=== PATIENT | male | born 2000 | race Two or more races ===

== ENCOUNTER 2019-01-08 16:09 | Emergency (ER) | payer MEDICAID ==
[~2019-01-08] VITALS: Ht 170.2 cm; Wt 86.2 kg
--- NOTE | 2019-01-08 16:24 | NUR ---
ED Nurse Note: Pt walked in due to left knee pain x 1 day. Denies trauma/injury. AAO x4 and ambulatory.
[2019-01-08] MEDS ORDERED: IBUPROFEN600 MG ORAL (17:05)
[2019-01-08 17:10] VITALS: BP 120/71
--- NOTE | 2019-01-08 17:11 | NUR ---
ER DISCHARGE NOTE: Patient is cleared to be discharged per ERMD, pt is aox4, on room air, with stable vital signs. pt was given dc and prescription instructions, pt was able to verbalize understanding, pt id band removed without complications. pt is able to ambulate with steady gait. pt took all belongings.
--- NOTE | 2019-01-08 20:48 | Emergency Room Report ---
History of Present Illness General Chief Complaint: Lower Extremity Injury Source: Patient Present Illness HPI The patient is a 18-year-old male presenting for left knee pain. He states that his left knee yesterday onto a hard surface. He denies any other injury. Pain is continued and is a 10 out of 10 dull ache. Does not radiate. Worse with movement. He denies previous knee injury. He denies any other symptoms including numbness, tingling, rash Allergies: Coded Allergies: No Known Allergies (Unverified , 01/08/19) Patient History Past Medical History: see triage record Pertinent Family History: none Reviewed Nursing Documentation: PMH: Agreed; PSxH: Agreed Nursing Documentation-PMH Past Medical History: No Stated History Review of Systems All Other Systems: negative except mentioned in HPI Physical Exam Vital Signs Date Time Temp Pulse Resp B/P (MAP) Pulse Ox O2 Delivery O2 Flow Rate FiO2 01/08/19 16:14 97.5 70 18 112/65 (81) 98 Room Air Sp02 EP Interpretation: reviewed, normal General Appearance: no apparent distress, alert, GCS 15, non-toxic Head: normocephalic, atraumatic Musculoskeletal: back normal, gait/station normal, normal range of motion, no calf tenderness, tender - L anterior knee Neurologic: alert, oriented x3, responsive, motor strength/tone normal, sensory intact, speech normal Psychiatric: judgement/insight normal, memory normal, mood/affect normal, no suicidal/homicidal ideation Skin: no rash Medical Decision Making PA Attestation Dr. Maria is my supervising physician. Patient management was discussed with my supervising physician Diagnostic Impression: Primary Impression: Contusion of knee, left Qualified Codes: S80.02XA - Contusion of left knee, initial encounter ER Course The patient is a 18-year-old male presenting for left knee pain. Ddx considered include but not limited to sprain/strain, fracture, contusion PE: Vitals stable. NAD Left knee: Full active range of motion is intact. No laxity. No edema or erythema. There is tenderness to palpation over patella. No deformity Normal gait X-ray of the left knee is unremarkable Rice instructions are given and the patient is discharged with Motrin. He is told to follow-up with primary doctor. ER precautions given Other X-Ray Diagnostic Results Other X-Ray Diagnostic Results : # of Views/Limited Vs Complete: 3 View, Complete Indication: Pain EP Interpretation: Yes ARNIE Xray: Interpretation reviewed, by supervising MD, and agrees with findings. Interpretation: no dislocation, no soft tissue swelling, no fractures Impression: No acute disease Electronically Signed by: Jeff Bertrand PA-C Last Vital Signs Date Time Temp Pulse Resp B/P (MAP) Pulse Ox O2 Delivery O2 Flow Rate FiO2 01/08/19 17:10 98.0 78 16 120/71 99 Room Air Status: improved Disposition: HOME, SELF-CARE Condition: Improved Scripts Ibuprofen* (MOTRIN*) 600 Mg Tablet 600 MG ORAL Q8H PRN for For Pain, #30 TAB 0 Refills Prov: JEFF BERTRAND 01/08/19 Referrals: NOT CHOSEN IPA/,REFERRING (PCP) Departure Forms: Return to School Return to School On: Jan 10, 2019 School Release Restrictions: None Patient Instructions: Knee Pain Additional Instructions: I discussed my findings with the patient. All questions and concerns have been answered. Treatment and medication compliance have been addressed. I advised the patient that they need to follow up with PMD in 3-5 days. Return to ED if pain remains or worsens, numbness or tingling occurs, new rash is noticed, fever is noticed, or if needed for any reason. Patient verbalized understanding of discharge instructions. JEFF BERTRAND Jan 08, 2019 20:48
--- NOTE | 2019-01-09 12:46 | Diagnostic Imaging Report ---
Indication: Left knee pain, status post fall Technique: 3 views of the left knee Comparison: None Findings: No suprapatellar effusion. No acute fractures. No dislocations. The joint spaces are preserved Impression: Negative
== END 2019-01-08 17:13 | disposition home or self-care (01) ==
LOC: EMR 16:47
DX: S80.02XA Contusion of left knee, initial encounter (principal); W22.09XA Striking against other stationary object, initial encounter; Y92.9 Unspecified place or not applicable
CPT/HCPCS: 73562; Z7502; 99283

== ENCOUNTER 2019-06-28 07:59 | Emergency (ER) | payer MEDICAID, OTHER ==
[~2019-06-28] VITALS: Ht 170.2 cm; Wt 72.6 kg
[~2019-06-28 07:59] MED LIST: IBUPROFEN600 MG ORAL
--- NOTE | 2019-06-28 08:12 | NUR ---
ED Nurse Note: Pt ambulated to ed c/o left middle finger laceration s/p cleaning chicken at work. pt finger appears red and swollen, no active bleeding at this time. NAD noted
[2019-06-28 08:13] VITALS: BP 108/65
[2019-06-28] MEDS ORDERED: Tetanus/Diptheria/Pertussis IM ONE (08:15)
--- NOTE | 2019-06-28 08:21 | Emergency Room Report ---
History of Present Illness General Chief Complaint: Laceration Source: Patient Present Illness HPI Disclaimer: Please note that this report is being documented using DRAGON technology. This can lead to erroneous entry secondary to incorrect interpretation by the dictating instrument. HPI: 18-year-old male presents for evaluation of laceration. Patient was cooking yesterday and accidentally sliced the dorsum of the middle phalanx of the left middle finger. Cleaned it yesterday. Did not seek medical attention initially after the injury. Came today to fill out paperwork as this occurred at work. Cannot recall last tetanus shot. No rebleeding since initial injury. Denies swelling or drainage. Allergies: Coded Allergies: No Known Allergies (Unverified , 01/08/19) Nursing Documentation-[facility] Past Medical History: No Stated History Review of Systems All Other Systems: negative except mentioned in HPI Physical Exam Vital Signs Date Time Temp Pulse Resp B/P (MAP) Pulse Ox O2 Delivery O2 Flow Rate FiO2 06/28/19 08:05 97.9 65 14 108/65 (79) 96 Room Air General: Awake and alert, no acute distress HEENT: NC/AT. EOMI. Resp: Normal work of breathing Skin: There is a 2 cm semilunar shaped superficial laceration over the middle phalanx, dorsal surface, of the left middle finger. Wound is well approximated and healing. No bleeding. MSK: Normal tone and bulk. Moving all extremities. No obvious deformity. Able to move all digits on the left hand. Brisk capillary refill in all digits. Sensation is intact in all digits. Neuro: Awake and alert. Mentating appropriately Procedures Laceration/Wound Repair Laceration/Wound Repair : Consent: Verbal Wound Location: upper extremity Wound's Depth, Shape: superficial, linear Wound Length (cm): 2 Wound Explored: clean Wound Repaired With: Dermabond Patient Tolerated: Well Complications: None Medical Decision Making Diagnostic Impression: Primary Impression: Finger laceration ER Course 18-year-old male presents for laceration of his left middle finger. Incident occurred yesterday. He had cleaned it and appears to be well-healing and approximated. Cannot separate the layers of skin at this time. Does not require closure. We will update his tetanus, reclean the wound and dress it. 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 Advised him to keep it covered and wear gloves at all time while preparing food. Will follow-up with PMD. Last Vital Signs Date Time Temp Pulse Resp B/P (MAP) Pulse Ox O2 Delivery O2 Flow Rate FiO2 06/28/19 08:13 97.9 73 14 108/65 96 Room Air Disposition: HOME, SELF-CARE Condition: Stable Jose Antonio Maria MD Jun 28, 2019 08:21
[2019-06-28 08:28] VITALS: BP 112/67
--- NOTE | 2019-06-28 08:29 | NUR ---
ER DISCHARGE NOTE: Patient is cleared to be discharged per ERMD, pt is aox4, on room air, with stable vital signs. pt was given dc instructions, pt was able to verbalize understanding, pt id banremoved. pt is able to ambulate with steady gait. pt took all belongings. Dermabond placed per ermd, pt tolerated well. pt left with sister.
== END 2019-06-28 08:29 | disposition home or self-care (01) ==
LOC: EMR 08:20
DX: S61.213A Laceration without foreign body of left middle finger without damage to nail, initial encounter (principal); W26.0XXA Contact with knife, initial encounter; Y93.G1 Activity, food preparation and clean up; Y92.9 Unspecified place or not applicable
CPT/HCPCS: 90471; 90715; 99283